=== PATIENT | male | born 1995 | race African-American/Black ===

== ENCOUNTER → 2017-01-27 | Outpatient (CLI) | payer OTHER | LOC: FIMAGING 13:22 → EDSTATUS 13:24 | PROVIDERS: ATTEND Family Medicine | DX: Z11.1 Encounter for screening for respiratory tuberculosis (principal) ==

== ENCOUNTER 2018-06-26 06:43 | Emergency (ER) | payer OTHER ==
[2018-06-26 06:47] VITALS: BP 148/86
--- NOTE | 2018-06-26 06:55 | EDPHY ---
H & P Stated Complaint: fell hurt right elbow Time Seen by Provider: 06/26/18 06:47 HPI/ROS: Chief Complaint: Right elbow pain HPI: 22-year-old male had a slip and fall onto his right elbow last night while at the bar. He is had right elbow pain since that time. No prior injuries. Is not taking any medicine. He did not hit his head. No loss of consciousness. Denies any other injuries. ROS: 10 systems were reviewed and were negative except those elements noted in the HPI. PMH: Denies Social History: No smoking, occasional alcohol Family History: non-contributory Physical Exam: General: Awake alert, no acute distress Right upper extremity: Shoulder is nontender, decreased range of motions secondary to elbow pain. Right elbow. Patient is holding in flexion in abduction. Scant diffuse tenderness over both the olecranon is, the radial head and the distal humerus. He is unable to move it secondary to pain. Distally he has got normal pulses. Sensations intact in the radial, median, and ulnar nerve distribution. Capillary refills less than 2 sec. No forearm pain or tenderness. No deformity otherwise. Skin: No rash - Personal History Current Tetanus/Diphtheria Vaccine: Yes Current Tetanus Diphtheria and Acellular Pertussis (TDAP): Yes - Medical/Surgical History Hx Asthma: No Hx Chronic Respiratory Disease: No Hx Diabetes: No Hx Cardiac Disease: No Hx Renal Disease: No Hx Cirrhosis: No Hx Alcoholism: No Hx HIV/AIDS: No Hx Splenectomy or Spleen Trauma: No Other PMH: ADD - Social History Smoking Status: Current every day smoker Constitutional: Initial Vital Signs Temperature (C) 36.5 C 06/26/18 06:44 Heart Rate 81 06/26/18 06:44 Respiratory Rate 16 06/26/18 06:44 Blood Pressure 148/86 H 06/26/18 06:44 O2 Sat (%) 98 06/26/18 06:44 O2 Delivery Mode Room Air Allergies/Adverse Reactions: No Known Allergies Allergy (Unverified 06/26/18 06:47) Home Medications: Medication Instructions Recorded Adderall 10 MG (*) 06/26/18 Hydrocodone/Acetaminophen 1 - 2 each PO Q4-6PRN PRN #10 06/26/18 [Hydrocodon-Acetaminophen 5-325] tablet Medical Decision Making ED Course/Re-evaluation: Elbow x-ray shows a radial head fracture which is not significantly displaced. Patient has been placed in a sling given oral analgesia. He will be discharged with follow up with Orthopedics. Departure - Departure Disposition: Home, Routine, Self-Care Clinical Impression: Radial head fracture Condition: Good Instructions: Elbow Fracture (ED), How to Use a Sling (ED) Additional Instructions: Leave the sling in place until your seen by the orthopedist. Follow up with orthopedist in 2-3 days for further evaluation. Referrals: Carlos Nuno MD [Medical Doctor] - As per Instructions Prescriptions: Hydrocodone/Acetaminophen [Hydrocodon-Acetaminophen 5-325] 1 - 2 each PO Q4- 6PRN PRN #10 tablet PRN Reason: Pain, Severe
[2018-06-26] MEDS ORDERED: HYDROCODONE/APAP 5/325 TAB PO ONE (07:11)
== END 2018-06-26 07:39 | disposition home or self-care (01) ==
DX: S52.121A Displaced fracture of head of right radius, initial encounter for closed fracture (principal); F17.200 Nicotine dependence, unspecified, uncomplicated; W19.XXXA Unspecified fall, initial encounter; Y92.59 Other trade areas as the place of occurrence of the external cause; Y93.9 Activity, unspecified; Y99.9 Unspecified external cause status
CPT/HCPCS: A4565